=== PATIENT | female | born 2000 | race Caucasian/White ===

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

== ENCOUNTER 2023-02-24 17:05 | Emergency (ER) | payer OTHER ==
[2023-02-24 17:16] VITALS: PULSE 87
[2023-02-24] MEDS ORDERED: Sodium Chloride 0.9% 10 ML Syringe FLUSH PRN (17:22)
[2023-02-24] MEDS: Sodium Chloride 0.9% 1,000 ML IV ONE (17:38)
[2023-02-24 17:47] LABS: BASOPHILS ABSOLUTE AUTO 0.01 10^3/uL (0.00-0.10); BASOPHILS PERCENT AUTO 0.1 % (0.0-1.0); EOSINOPHILS ABSOLUTE AUTO 0.05 10^3/uL (0.10-0.30); EOSINOPHILS PERCENT AUTO 0.4 % (1.0-3.0); HEMATOCRIT 37.1 % (37.0-47.0); HEMOGLOBIN 12.4 g/dL (12.0-16.0); IMMATURE GRAN ABSOLUTE AUTO 0.02 10^3/uL (0.00-0.50); IMMATURE GRAN PERCENT AUTO 0.1 % (0.0-5.0); LYMPHOCYTES ABSOLUTE AUTO 3.79 10^3/uL (1.00-4.00); MEAN CORPUSCULAR HEMOGLOBIN 25.4 pg (27.0-31.0); MEAN CORPUSCULAR HGB CONC 33.4 g/dL (32.0-36.0); MEAN CORPUSCULAR VOLUME 75.9 fL (82.0-92.0); MEAN PLATELET VOLUME 8.9 fL (7.4-10.4); MONOCYTES ABSOLUTE AUTO 0.58 10^3/uL (0.10-0.80); MONOCYTES PERCENT AUTO 4.1 % (2.0-8.0); NEUTROPHILS ABSOLUTE AUTO 9.61 10^3/uL (2.50-7.00); NEUTROPHILS PERCENT AUTO 68.3 % (50.0-70.0); PLATELET COUNT,PLT 422 10^3/uL (150-400); RED BLOOD CELL COUNT 4.89 10^6/uL (3.80-5.50); RED CELL DISTRIBUTION WIDTH 14.5 % (11.5-14.5); WHITE BLOOD CELL COUNT,WBC 14.06 10^3/uL (5.00-10.00)
[2023-02-24 18:03] LABS: ALBUMIN 2.72 g/dL (3.40-5.00); ANION GAP 15.3 mmol/L (5-15); BILIRUBIN TOTAL 0.3 mg/dL (0.2-1.0); CALCIUM 8.7 mg/dL (8.7-10.3); CARBON DIOXIDE,CO2 22.1 mmol/L (21.0-32.0); CREATININE 0.7 mg/dL (0.51-1.17); EST CRCL DRUG DOSING (CG) 92.08 mL/min; POTASSIUM,K 3.4 mmol/L (3.5-5.1); PROTEIN TOTAL,TP 6.9 g/dL (6.4-8.2)
[2023-02-24 18:07] LABS: LACTIC ACID 1.4 mmol/L (0.4-2.0)
[2023-02-24 18:35] LABS: APPEARANCE,URINE SLIGHTLY CLOUDY (CLEAR); BILIRUBIN,URINE NEGATIVE (NEGATIVE); COLOR,URINE YELLOW (YELLOW); GLUCOSE,URINE NEGATIVE (NEGATIVE); KETONES,URINE 15 mg/dL (NEGATIVE); LEUKOCYTE ESTERASE,URINE TRACE (NEGATIVE); NITRITE,URINE NEGATIVE (NEGATIVE); OCCULT BLOOD,URINE NEGATIVE (NEGATIVE); PROTEIN,URINE NEGATIVE (NEGATIVE); UROBILINOGEN,URINE 0.2 E.U./dL (0.2-1.0)
[2023-02-24 18:36] LABS: BACTERIA,URINE FEW /HPF (NONE TO FEW); EPITHELIAL CELLS,URINE FEW /LPF; RBC,URINE 0-5 /HPF (0-5)
[2023-02-24 18:42] VITALS: BP 133/75
[2023-02-24] MEDS: Fluconazole 100 MG Tab PO ONE (18:54)
[2023-02-24] MEDS: Sulfamethoxazole/Trimethoprim 800-160 MG Tab PO ONE (18:54)
== END 2023-02-24 19:10 | disposition home or self-care (01) ==
LOC: KA.ED 17:05
DX: B37.31 Acute candidiasis of vulva and vagina (principal); B37.49 Other urogenital candidiasis; K21.9 Gastro-esophageal reflux disease without esophagitis; E03.9 Hypothyroidism, unspecified; E66.9 Obesity, unspecified; Z68.45 Body mass index [BMI] 70 or greater, adult; Z88.0 Allergy status to penicillin; Z86.16 Personal history of COVID-19; Z79.899 Other long term (current) drug therapy
CPT/HCPCS: 80053; 81001; 83605; 85025; 87086; 87088; 87186; 96360; 99284; 99284-25; A9270-GY; J7030

== ENCOUNTER 2024-04-08 14:10 | Emergency (ER) | payer OTHER ==
[2024-04-08] MEDS: Sodium Chloride 0.9% 1,000 ML IV ONE (14:55)
[2024-04-08 15:04] LABS: BASOPHILS ABSOLUTE AUTO 0.01 10^3/uL (0.00-0.10); BASOPHILS PERCENT AUTO 0.1 % (0.0-1.0); EOSINOPHILS PERCENT AUTO 3.2 % (1.0-3.0); HEMATOCRIT 38.1 % (37.0-47.0); HEMOGLOBIN 12.7 g/dL (12.0-16.0); LYMPHOCYTES ABSOLUTE AUTO 2.22 10^3/uL (1.00-4.00); LYMPHOCYTES PERCENT AUTO 23.7 % (20.0-40.0); MEAN CORPUSCULAR HEMOGLOBIN 26.3 pg (27.0-31.0); MEAN CORPUSCULAR HGB CONC 33.3 g/dL (32.0-36.0); MEAN CORPUSCULAR VOLUME 78.9 fL (82.0-92.0); MEAN PLATELET VOLUME 10.1 fL (7.4-10.4); MONOCYTES PERCENT AUTO 7.5 % (2.0-8.0); NEUTROPHILS ABSOLUTE AUTO 6.12 10^3/uL (2.50-7.00); NEUTROPHILS PERCENT AUTO 65.5 % (50.0-70.0); PLATELET COUNT,PLT 333 10^3/uL (150-400); RED BLOOD CELL COUNT 4.83 10^6/uL (3.80-5.50); RED CELL DISTRIBUTION WIDTH 13.6 % (11.5-14.5); WHITE BLOOD CELL COUNT,WBC 9.35 10^3/uL (5.00-10.00)
[2024-04-08 15:14] LABS: ALANINE AMINOTRANSFERASE,ALT 34 U/L (14-63); ALBUMIN 3.17 g/dL (3.40-5.00); ALKALINE PHOSPHATASE 78 U/L (46-116); ANION GAP 12.8 mmol/L (5-15); ASPARTATE AMNIOTRANSFERASE,AST 14 U/L (15-37); BILIRUBIN TOTAL 0.2 mg/dL (0.2-1.0); BLOOD UREA NITROGEN,BUN 8 mg/dL (7-18); CALCIUM 8.7 mg/dL (8.7-10.3); CARBON DIOXIDE,CO2 22.8 mmol/L (21.0-32.0); CHLORIDE,CL 107 mmol/L (98-107); CREATININE 0.62 mg/dL (0.51-1.17); GLUCOSE RANDOM 82 mg/dL (70-140); MAGNESIUM 1.6 mg/dL (1.8-2.4); POTASSIUM,K 3.6 mmol/L (3.5-5.1); PROTEIN TOTAL,TP 6.7 g/dL (6.4-8.2); SODIUM,NA 139 mmol/L (136-145)
[2024-04-08 15:19] LABS: ESTIMATED GFR 129 mL/min (>=60)
[2024-04-08 15:32] LABS: APPEARANCE,URINE SLIGHTLY CLOUDY (CLEAR); BILIRUBIN,URINE SMALL (NEGATIVE); COLOR,URINE AMBER (YELLOW); GLUCOSE,URINE NEGATIVE (NEGATIVE); KETONES,URINE TRACE mg/dL (NEGATIVE); LEUKOCYTE ESTERASE,URINE NEGATIVE (NEGATIVE); NITRITE,URINE NEGATIVE (NEGATIVE); OCCULT BLOOD,URINE LARGE (NEGATIVE); PROTEIN,URINE 100 mg/dL (NEGATIVE)
[2024-04-08 15:33] LABS: BACTERIA,URINE NOT SEEN /HPF (NONE TO FEW); EPITHELIAL CELLS,URINE MODERATE /LPF; RBC,URINE >100 /HPF (0-5); WBC,URINE 0-5 /HPF (0-5)
[2024-04-08 15:34] LABS: MUCUS,URINE MODERATE /LPF (NEGATIVE)
[2024-04-08] MEDS: Magnesium Sulfate/Water 2 GM in Premix Bag 1 BAG IV ONE (16:23)
[2024-04-08 18:17] VITALS: BP 107/67; PULSE 87
== END 2024-04-08 18:26 | disposition home or self-care (01) ==
LOC: KA.ED 14:10
DX: E86.0 Dehydration (principal); K21.9 Gastro-esophageal reflux disease without esophagitis; E66.9 Obesity, unspecified; E03.9 Hypothyroidism, unspecified; Z88.0 Allergy status to penicillin; Z88.8 Allergy status to other drugs, medicaments and biological substances; Z79.890 Hormone replacement therapy; Z79.899 Other long term (current) drug therapy; Z68.43 Body mass index [BMI] 50.0-59.9, adult
CPT/HCPCS: 36415; 80053; 81001; 83735; 85025; 96361; 96365; 96366; 99284; J3475; J7030